=== PATIENT | male | born 1935 | race Hispanic/Latino ===

== ENCOUNTER 2020-11-01 09:42 | Outpatient (CLI) | payer OTHER ==
--- NOTE | 2020-11-01 10:21 | XRay Report ---
ABDOMEN 1 VIEW 11/01/2020 9:11 AM INDICATION / CLINICAL INFORMATION: CALCULUS OF KIDNEY N20.0. COMPARISON: None available. FINDINGS: TUBES / LINES: None. BOWEL GAS PATTERN: No significant abnormality. FREE AIR / EXTRALUMINAL GAS: None. ADDITIONAL FINDINGS: There is a small round calcification in the right lower pelvis. This is most lik damian a phlebolith. Mild atherosclerotic calcifications are noted in the iliac arteries. Surgical coils project over the pelvis consistent with prior hernia repair with mesh. IMPRESSION: 1. There is a very small round calcification in the right lower pelvis which is likely a phlebolith. Signer Name: Adam Ruiz MD Signed: 11/01/2020 10:17 AM Workstation Name: [id number]
== END 2020-11-01 09:43 | disposition home or self-care (01) ==
LOC: SPVIMAG 09:42
PROVIDERS: ATTEND Urology
DX: N20.0 Calculus of kidney (principal); I70.8 Atherosclerosis of other arteries
CPT/HCPCS: 74018